=== PATIENT | male | born 1930 | race Caucasian/White ===

== ENCOUNTER → 2018-09-02 | Outpatient (CLI) | payer MEDICARE, OTHER ==
[~2018-09-02] MED LIST: ASPIRIN 32325 MG/TAB PO; FLOMAX 0.40.4 MG/CAP PO; IMDUR 30MG30 MG/TAB PO; LIPITOR 10MG10 MG PO; LOPRESSOR 550 MG/TAB PO; NORVASC 5MG5 MG/TAB PO; PLAVIX 75MG TAB75 MG PO; PRILOSEC 20MG20 MG PO; PRINZIDE 12.5 M1 TAB PO; THEO-24100 MG PO
== END ==
LOC: COL.PUL 10:39
DX: I73.9 Peripheral vascular disease, unspecified (principal)

== ENCOUNTER → 2019-07-02 | Outpatient (CLI) | payer MEDICARE, OTHER | LOC: ZCOL.LAB 17:45 | DX: Z01.89 Encounter for other specified special examinations (principal) ==

== ENCOUNTER → 2020-10-13 | Outpatient (REF) ==
[~2020-10-13] MED LIST changes: +ASPIRIN 81M81 MG/TA2 PO; +ATROVENT I0.2 MG/1 M IH; +FEOSOL45 MG PO; +FLONASEALLERGY NS; +RANEXA 500MG T500 MG PO; +RT ADVAIR 228 DISKUS IH; +SYNTHROID0.05 MG/TA PO; +TOPROL XL100 MG PO; +XARELTO2.5 MG PO; +ZESTRIL 10MG10 MG PO
== END ==
LOC: ZLAB.WCH 09:35
DX: Z01.89 Encounter for other specified special examinations (principal)

== ENCOUNTER → 2020-10-14 | Outpatient (REF) | LOC: ZLAB.WCH 18:27 | DX: Z01.89 Encounter for other specified special examinations (principal) ==